=== PATIENT | female | born 1945 | race African-American/Black ===

== ENCOUNTER 2019-03-27 17:43 | Inpatient (IN) | payer MEDICARE ==
[~2019-03-27] VITALS: Ht 165.1 cm; Wt 86.1 kg
[2019-03-27] MEDS ORDERED: FERROUS SULFAT325 MG PO (17:50)
[2019-03-27] MEDS ORDERED: HYDRALAZINE HCL25 MG PO (17:50)
[2019-03-27] MEDS ORDERED: RENVELA800 MG PO (17:51)
[2019-03-27] MEDS ORDERED: ADALAT CC90 MG PO (17:51)
[2019-03-27] MEDS ORDERED: LASIX80 MG PO (17:51)
[2019-03-27] MEDS ORDERED: ELAVIL10 MG PO (17:52)
[2019-03-27] MEDS ORDERED: ANASTROZOLE PO (17:53)
[2019-03-27] MEDS ORDERED: RETIN-A15 GM TP (17:54)
[2019-03-27 19:43] LABS: BASOPHILS 0.2 % (0-2); EOSINOPHILS 0.1 % (0-7); IMMATURE GRANULOCYTES 0.9 % (0-5); LYMPHOCYTES 16.4 % (15-50); MCH 23.8 pg (26.0-34.0); MCHC 28.1 g/dL (31.0-37.0); MCV 84.5 fL (80.0-100.0); MEAN PLATELET VOLUME 9.4 fL (7.4-10.4); MONOCYTES 7.3 % (2-11); NEUTROPHILS 75.1 % (40-80); PLATELET COUNT 285 10x3/uL (130-400); RDW 16.7 % (11.5-14.5)
[2019-03-27 19:59] LABS: HEMATOCRIT 15.3 % (36.0-48.0); HEMOGLOBIN 4.3 g/dL (12-16); RBC 1.81 10x6/uL (4.00-5.40)
[2019-03-27 20:40] LABS: ALBUMIN 2.3 g/dL (3.4-5.0); ANION GAP 16.6 mmol/L (8-16); BILIRUBIN - TOTAL 0.14 mg/dL (0.2-1.3); CALCIUM 8.1 mg/dL (8.5-10.1); CARBON DIOXIDE 23.5 mmol/L (21.0-32.0); POTASSIUM - SERUM 3.1 mmol/L (3.5-5.1); PROTEIN - SERUM 6.3 g/dL (6.4-8.2)
--- NOTE | 2019-03-27 22:00 | NUR ---
PT ARRIVED TO ICU ACCOMPANIED BY NURSING STAFF. REPORT RECEIVED, PT ON ROOM AIR. PIV IN LEFT HAND INFUSING, SEE IV FLOWSHEET. NO ACUTE DISTRESS NOTED AT THIS TIME, WILL CONTINUE WITH PLAN OF CARE.
[2019-03-27 22:16] VITALS: BP 182/77; BMI 30.8
[2019-03-27 23:00] VITALS: BP 190/83
--- NOTE | 2019-03-27 23:00 | NUR ---
PT RESTING IN BED, NO ACUTE DISTRESS NOTED. SPOUSE AT BEDSIDE AT THIS TIME. WILL CONTINUE TO MONITOR.
[2019-03-28] VITALS (23 sets, daily range): BP systolic 131–189; BP diastolic 62–85; Ht 165.1 cm; Wt 86.1 kg
--- NOTE | 2019-03-28 00:10 | NUR ---
SPOKE WITH DR CANALES, UPDATED ON PT STATUS, NEW ORDERS RECEIEVED. DRESSING PLACE ON HEMOSPLIT TO RIGHT UPPER CHEST. NO BLEEDING NOTED AT THIS TIME.
--- NOTE | 2019-03-28 01:00 | NUR ---
PT SITTING UP IN BED, NO ACUTE DISTRESS NOTED.
--- NOTE | 2019-03-28 03:00 | NUR ---
PRBC COMPLETE, PIV TO SL. NO ACUTE DISTRESS NOTED AT THIS TIME. WILL CONTINUE TO MONITOR.
--- NOTE | 2019-03-28 05:00 | NUR ---
PT RESTING IN BED, AAOX4. NO ACUTE DISTRESS NOTED. WILL CONTINUE TO MONITOR.
[2019-03-28 05:28] LABS: ANION GAP 12.7 mmol/L (8-16); CALCIUM 7.9 mg/dL (8.5-10.1); CARBON DIOXIDE 26.9 mmol/L (21.0-32.0); CREATININE - SERUM 7.3 mg/dL (0.6-1.3)
[2019-03-28 05:32] LABS: POTASSIUM - SERUM 2.6 mmol/L (3.5-5.1)
[2019-03-28 05:44] LABS: BASOPHILS 0.1 % (0-2); EOSINOPHILS 0.8 % (0-7); IMMATURE GRANULOCYTES 0.5 % (0-5); LYMPHOCYTES 16.5 % (15-50); MCH 27.4 pg (26.0-34.0); MCHC 31.7 g/dL (31.0-37.0); MEAN PLATELET VOLUME 9.3 fL (7.4-10.4); MONOCYTES 9.3 % (2-11); NEUTROPHILS 72.8 % (40-80); PLATELET COUNT 318 10x3/uL (130-400); RDW 15.6 % (11.5-14.5); WBC 12.1 10x3/uL (4.8-10.8)
[2019-03-28 05:49] LABS: HEMATOCRIT 22.4 % (36.0-48.0); HEMOGLOBIN 7.1 g/dL (12-16); MCV 86.5 fL (80.0-100.0); RBC 2.59 10x6/uL (4.00-5.40)
--- NOTE | 2019-03-28 06:03 | NUR ---
DR CANALES PAGED REGARDING LABS. AWAITING CALL BACK.
--- NOTE | 2019-03-28 06:32 | NUR ---
RECEIVED CALL BACK FROM DR CANALES, UPDATED ON STATUS, NEW ORDERS RECEIVED.
--- NOTE | 2019-03-28 07:00 | NUR ---
REPORT RECEIVED. ASSESSMENT COMPLETE PER FLOW SHEET. VSS. PT DENIES NEEDS WILL CONTINUE TO MONITOR
--- NOTE | 2019-03-28 08:08 | NUR ---
FAMILY CALLED THAT CLAIMED TO BE BROTHER IN LAW. WAS NOT ABLE TO PROVIDE DATE OF . DENIED FAMILY ANY INFORMATION
--- NOTE | 2019-03-28 08:20 | NUR ---
DR MEJIA PAGED GIVEN UDPATE.
--- NOTE | 2019-03-28 09:30 | NUR ---
ASSISTED UPTO BEDSIDE COMMODE. 150 CC VOID NOTED.
--- NOTE | 2019-03-28 10:32 | NUR ---
FAMILY CALLED GIVEN NIK
--- NOTE | 2019-03-28 11:08 | NUR ---
PT PREOP'D PER T ORDER FROM OR.
--- NOTE | 2019-03-28 11:10 | NUR ---
OR AT BEDSIDE PT TO OR AT THIS TIME. NEEDS MET.
--- NOTE | 2019-03-28 13:40 | NUR ---
PT BACK FROM OR AT THIS TIME. VSS. NO NEW CANGES WILL CONTINUE TO MONITOR
--- NOTE | 2019-03-28 15:20 | NUR ---
PT RESTING COMFORTABLY VSS NO NEW CHANGE DIALYSIS AT BEDSIDE GIVEN UPDATE. WILL CONTINUE TO MONITOR
--- NOTE | 2019-03-28 17:20 | NUR ---
MCAIE TERRELL CALLED BACK STATED WOULD RECIEVED 2 U PRBC TOMM[place] WITH DIALYSIS. DIALYSIS TO BE POSTPONED UNTIL T[place].
--- NOTE | 2019-03-28 19:00 | NUR ---
ASSESSMENT COMPLETED. VSS. DENIES ANY NEEDS AT THIS TIME. ON ROOM AIR. DRSG TO NEW HEMOSPLIT CDI.
--- NOTE | 2019-03-28 21:00 | NUR ---
VSS. DENIES ANY NEEDS AT THIS TIME. LAYING BACK IN BED, EASILY WAKES.
--- NOTE | 2019-03-28 23:00 | NUR ---
RE-ASSESSMENT COMPLETED. DENIES ANY NEEDS AT THIS TIME. EASILY WAKES. CALL LIGHT IN REACH
--- NOTE | 2019-03-29 01:00 | NUR ---
VSS. LAYING IN BED, EASILY WAKES. DENIES ANY NEEDS. CALL LIGHT IN REACH
[2019-03-29 03:00] VITALS: BP 174/72
--- NOTE | 2019-03-29 03:00 | NUR ---
DENIES ANY NEEDS. EASILY WAKES. VSS.
[2019-03-29 04:13] LABS: BASOPHILS 0.1 % (0-2); EOSINOPHILS 1.1 % (0-7); HEMATOCRIT 20.3 % (36.0-48.0); IMMATURE GRANULOCYTES 0.2 % (0-5); LYMPHOCYTES 15.5 % (15-50); MCH 27.4 pg (26.0-34.0); MCHC 31.5 g/dL (31.0-37.0); MCV 86.8 fL (80.0-100.0); MONOCYTES 9.3 % (2-11); NEUTROPHILS 73.8 % (40-80); PLATELET COUNT 281 10x3/uL (130-400); RBC 2.34 10x6/uL (4.00-5.40); RDW 15.7 % (11.5-14.5)
[2019-03-29 04:36] LABS: HEMOGLOBIN 6.4 g/dL (12-16)
[2019-03-29 04:42] LABS: ALBUMIN 2.2 g/dL (3.4-5.0); BILIRUBIN - TOTAL 0.19 mg/dL (0.2-1.3); CALCIUM 7.7 mg/dL (8.5-10.1); CARBON DIOXIDE 26.6 mmol/L (21.0-32.0); CREATININE - SERUM 8.4 mg/dL (0.6-1.3)
[2019-03-29 04:43] LABS: POTASSIUM - SERUM 3.6 mmol/L (3.5-5.1)
--- NOTE | 2019-03-29 05:00 | NUR ---
CHG BATH WITH COMPLETE LINEN CHANGE. VSS. CALL LIGHT IN REACH
[2019-03-29 07:00] VITALS: BP 176/84
--- NOTE | 2019-03-29 07:13 | NUR ---
[facility] [address]. CALLED DR. CANALES AND NO NEW ORDERS.
--- NOTE | 2019-03-29 07:20 | NUR ---
REPORT RECEIVED. ASSESSMENT COMPELTE PER FLOW SHEET. VSS. PT RESTING COMFORTABLY DR CANALES AT BEDSIDE GIVEN UPDATE. NEW ORDERS RECIEVED
[2019-03-29 11:00] VITALS: BP 151/72
[2019-03-29 15:00] VITALS: BP 164/82
--- NOTE | 2019-03-29 21:28 | MORECARE ---
CASE MANAGEMENT DISCHARGE SUMMARY PATIENT: MAN GARCIA UNIT: [id number] ADM DATE: 03/27/19 AGE: 73 : 47 SEX: F ROOM/BED: D.2309 AUTHOR: CARMENZA COSME PHYSICIAN: REFERRING PHYSICIAN: MEÑO CANALES MD DATE OF SERVICE: 03/29/19 Discharge Plan Patient Name: MAN GARCIA [facility] [facility] 1945 Planned Disposition: Home Anticipated Discharge Date: Discharge Date: 03/29/2019 Expected LOS: Initial Reviewer: [email or web address] Initial Review Date: 03/29/2019 Generated: 03/29/19 10:28 pm DCPIA - Discharge Planning Initial Assessment Updated by [email or web address]: Liberty Darby on 03/29/19 9:27 pm * Is the patient Alert and Oriented? Yes * How many steps to enter\exit or inside your home? * PCP BRYAN CROUCH * [facility] * Preadmission Environment Home with Family * ADLs Independent * Equipment None * List name and contact numbers for known caregivers / representatives who currently or will assist patient after discharge: JUD GARCIA - SPOUSE- [phone] * Verbal permission to speak to the caregivers and representatives has been obtained from the patient. N/A * Community resources currently utilized None * Additional services required to return to the preadmission environment? No * Can the patient safely return to the preadmission environment? Yes * Has this patient been hospitalized within the prior 30 days at any hospital? Yes Patient Name: MAN GARCIA Page [id number] at 2128 All edits/amendments must be made on the electronic document DICTATION DATE: 03/29/192127 SERVICE DESK ASSOCIATE: TYRA 03/29/192127 RPT#: [id number] DC DATE:03/29/19 STATUS: DIS IN [facility] [address] [place] [address] END OF REPORT
--- NOTE | 2019-03-29 21:36 | MORECARE ---
CASE MANAGEMENT DISCHARGE SUMMARY PATIENT: MAN GARCIA UNIT: [id number] ADM DATE: 03/27/19 AGE: 73 : 47 SEX: F ROOM/BED: D.2309 AUTHOR: CARMENZA COSME PHYSICIAN: REFERRING PHYSICIAN: MEÑO CANALES MD DATE OF SERVICE: 03/29/19 Discharge Plan Patient Name: MAN GARCIA Facility: [facility]:[place] : 1945 Planned Disposition: Home Anticipated Discharge Date: Discharge Date: 03/29/2019 Expected LOS: Initial Reviewer: [email or web address] Initial Review Date: 03/29/2019 Generated: 03/29/19 10:35 pm Comments DCP- Discharge Planning Updated by [email or web address]: Liberty Darby on 03/29/19 8:[address] LATE ENTRY 03/29/19 @ 1200 Patient Name: MAN GARCIA Admission Status: ER Accout number: [id number] Admission Date: 03-27-2019 : 1945 Admission Diagnosis:ACUTE POSTHEMORRHAGIC ANEMIA Attending: MEÑO CANALES Current LOS: 2 Anticipated DC Date: Planned Disposition: Home Primary Insurance: [employer] CHO[employer] PPO MCR ADVANT Discharge Planning Comments: CM met with patient to complete initial dc planning assessment. CM educated patient on the CM role and verbal consent given by patient to complete assessment. Patient lives at home with her where she is independent with her care. At discharge patient plans to return home and feels this is a safe discharge. CM discussed availability of home health, rehab services, and medical equipment. Her family will drive her home. Patient has dialysis at [facility] MWF @ 1430 Patient denied known discharge needs at this time. CM will continue to follow and will assist as needed with dc plans/needs. Junior Loan Processor: Liberty Darby DCPIA - Discharge Planning Initial Assessment Updated by [email or web address]: Liberty Darby on 03/29/19 9:27 pm * Is the patient Alert and Oriented? Yes * How many steps to enter\exit or inside your home? * PCP BRYAN CROUCH * Pharmacy [facility] * Preadmission Environment Home with Family * ADLs Independent * Equipment None * List name and contact numbers for known caregivers / representatives who currently or will assist patient after discharge: JUD GARCIA - SPOUSE- [phone] * Verbal permission to speak to the caregivers and representatives has been obtained from the patient. N/A * Community resources currently utilized None * Additional services required to return to the preadmission environment? No * Can the patient safely return to the preadmission environment? Yes * Has this patient been hospitalized within the prior 30 days at any hospital? Yes Last DP export: 03/29/19 8:28 Patient Name: MAN GARCIA Page [id number] at 2136 All edits/amendments must be made on the electronic document DICTATION DATE: 03/29/192134 STOCK CRANE OPERATOR: TYRA 03/29/192134 RPT#: [id number] CA DATE:03/29/19 STATUS: DIS IN [facility] [address] [place] [address] END OF REPORT
== END 2019-03-29 17:22 | disposition home or self-care (01) | DRG 811 ==
LOC: D.ER 17:43 → D.ICU 21:03
PROVIDERS: Family Medicine; Surgery; ADMIT Internal Medicine Nephrology; ATTEND Internal Medicine Nephrology
PROC: 05HM33Z Insertion of Infusion Device into Right Internal Jugular Vein, Percutaneous Approach (ICD-10-PCS; 2019-03-28)
PROC: 0JH63XZ Insertion of Tunneled Vascular Access Device into Chest Subcutaneous Tissue and Fascia, Percutaneous Approach (ICD-10-PCS; principal; 2019-03-28 12:30)
DX: D62 Acute posthemorrhagic anemia (principal); N18.6 End stage renal disease; I12.0 Hypertensive chronic kidney disease with stage 5 chronic kidney disease or end stage renal disease; E11.22 Type 2 diabetes mellitus with diabetic chronic kidney disease; Z99.2 Dependence on renal dialysis

== ENCOUNTER 2019-08-28 06:53 | Day surgery (SDC) | payer MEDICARE, OTHER ==
[~2019-08-28] VITALS: Ht 165.1 cm; Wt 78.0 kg
--- NOTE | ~2019-08-28 | OP ---
PATIENT NAME: MAN GARCIA MEDICAL RECORD: [id number] :[birth year] LOCATION:[facility] ADMISSION DATE: SURGEON: HOMER AZUL MD DATE OF OPERATION: 08/28/2019 REFERRED BY: Chase Canales MD. PREOPERATIVE DIAGNOSES: End-stage renal disease and dependence on hemodialysis with a patent unusable deep left brachial artery to basilic vein arteriovenous fistula. ADDITIONAL DIAGNOSES: Diabetes and hypertension. POSTOPERATIVE DIAGNOSES: End-stage renal disease and dependence on hemodialysis with a patent unusable deep left brachial artery to basilic vein arteriovenous fistula. OPERATION PERFORMED: Open revision by completion of a left brachial artery to translocated basilic vein AV fistula with complete mobilization and transection of the vein and translocation to an immediate subcutaneous position with reanastomosis by end-to-end direct suture. SURGEON: Homer Azul MD ANESTHESIA: General per ASSISTANT REAL ESTATE MANAGER with LMA. PREOPERATIVE NOTE: Ms. Garcia is a very pleasant 73-year-old -[place]ian female with end-stage renal disease, diabetes and hypertension. She has been started on dialysis and is stable on dialysis now with a right-sided tunneled dialysis catheter. She has very poor peripheral veins for construction of an arteriovenous fistula, but in mid June of this year, I did operate on her and construct a brachiobasilic Jarocho type AV fistula as a first stage in a planned 2 stage operation to construct a translocated basilic vein fistula. The patient has returned to the operating room now just over 2 months later for that procedure. The fistula has remained patent and on ultrasound has a diameter of approximately 10 mm through most of its length in the arm above the elbow. DESCRIPTION OF PROCEDURE: The patient was administered general anesthesia and then prepped and draped in sterile manner. I examined her arm with a duplex ultrasound and noted the basilic vein to be very satisfactorily dilated from the axilla down to the arterial anastomosis. I then made a long incision from axilla to the antecubital space and fully mobilized the basilic vein. Tributaries and vice president global advertising sales veins were divided between ligatures of 3-0 Vicryl and small Hemoclips and the vein totally mobilized from the overlying cutaneous sensory nerves. Distally just above or proximal to the arterial anastomosis, the vein was clamped and was then transected and bevelled. The vein was occluded proximally with an atraumatic vascular clamp and it was then flushed and distended with heparinized saline and treated with topical papaverine additionally. I then made an anterior very superficial subcutaneous tunnel for the vein in the usual manner using a Zoie tunneler. When I pulled it through the tunnel, it really was under excessive tension and I elected to place the vein in the immediate subcutaneous level while closing the primary incision. I flushed the vein again proximally and distally with heparinized saline and then performed an end-to-end anastomosis of basilic vein to basilic vein with running 7-0 Prolene. This was done of course superficial to the underlying nerves, OPERATIVE REPORT [id number] MAN GARCIA which had been dissected and spared during the first portion of the procedure. There was excellent flow in the fistula by handheld Doppler examination at this time and there was no twisting or kinking. The wound was infiltrated with 0.25% Marcaine with epinephrine and hemostasis additionally achieved with very discrete use of electrocautery. I then closed the wound closing the superficial tissues just deep to the vein. This was done with interrupted inverted 3-0 Vicryl. The fistula remained patent with good Doppler flow. I then closed the skin over the vein with a running intracuticular 4-0 Stratafix and when I examined her again with Doppler and palpation, there was no flow in the fistula detectable. I opened the lower third of the fistula and examined and palpated and massaged the vein and the anastomosis and pulsatile continuous flow returned. I did not see any evidence of significant technical problems at this point and I did not reopened the venous anastomosis and I did not try to pass a Alannah embolectomy catheter, but felt comfortable that there was no remaining thrombus within the vein. The wound was carefully closed very gently over this with intracuticular and subcuticular 3-0 Vicryl. The flow in the vein by handheld Doppler persisted. The incision was sealed with Dermabond glue and dressed with Maxorb Ag, Tegaderm, and Cavilon skin prep. The patient was awakened and taken to the recovery room in stable condition. Blood loss during the operation was about 5 cc and this was unreplaced. Sponges, instruments, and needles were accounted for. No drain was used and no surgical specimen was submitted for histopathology. In the recovery room, I could not hear a bruit or feel a thrill over the fistula. There has been an early failure or thrombosis for no reason that I can very clearly determine. The patient has been under anesthesia for a couple of hours and I am not going to return her to the operating room now for potentially implantation of an AV graft as I think it would become impossible for her to maintain outpatient status. I will plan to discharge her to home today and follow up with her in my office next week. At that time, we will recheck for patency of course of the fistula by ultrasound and if it is not patent, we will discuss with her scheduling for an AV graft probably left brachial artery to axillary vein Artegraft graft. TRANSINT:[id number] Voice Confirmation ID: [id number] DOCUMENT ID: [id number] CC: HOMER Correa MD CC: CHASE CANALES [id number] DICTATION DATE: 08/28/19 1355 SEISMOGRAPH OPERATOR: 08/28/19 1539 [facility] 08/28/[address] [facility] [address] [place] [address]
[~2019-08-28 06:53] MED LIST: ADALAT CC90 MG PO; ANASTROZOLE PO; BUMEX2 MG PO; ELAVIL10 MG PO; FERROUS SULFAT325 MG PO; HYDRALAZINE HCL25 MG PO; LASIX80 MG PO; RENVELA800 MG PO; RETIN-A15 GM TP; ULTRAM50 MG PO
[2019-08-28 07:22] LABS: BASOPHILS 0.4 % (0-2); EOSINOPHILS 1.9 % (0-7); HEMATOCRIT 46.2 % (36.0-48.0); IMMATURE GRANULOCYTES 0.3 % (0-5); LYMPHOCYTES 19.8 % (15-50); MCH 28.2 pg (26.0-34.0); MCHC 30.3 g/dL (31.0-37.0); MCV 93.1 fL (80.0-100.0); MEAN PLATELET VOLUME 9.6 fL (7.4-10.4); MONOCYTES 7.2 % (2-11); NEUTROPHILS 70.4 % (40-80); PLATELET COUNT 223 10x3/uL (130-400); RBC 4.96 10x6/uL (4.00-5.40); WBC 7.3 10x3/uL (4.8-10.8)
[2019-08-28 07:30] LABS: ANION GAP 19.1 mmol/L (8-16); CALCIUM 9.4 mg/dL (8.5-10.1); CARBON DIOXIDE 21.8 mmol/L (21.0-32.0); CREATININE - SERUM 7.3 mg/dL (0.6-1.3); INR 0.95 (0.85-1.17); POTASSIUM - SERUM 4.9 mmol/L (3.5-5.1); PROTIME 12.7 SECONDS (11.6-15.0)
[2019-08-28] MEDS ORDERED: LASIX80 MG PO (07:35)
[2019-08-28 08:01] VITALS: Ht 165.1 cm; Wt 78.0 kg
--- NOTE | 2019-08-28 09:14 | NUR ---
POSITIVE FOR POINT OF CONTACT OVERNIGHT STAY IN HOSPITAL FACILITY, CLEARED BY KRISTA WITH INFECTION CONTROL.
== END 2019-08-28 14:40 | disposition home or self-care (01) ==
LOC: D.OPS 06:53
PROVIDERS: Surgery; ATTEND Internal Medicine Nephrology
DX: I12.0 Hypertensive chronic kidney disease with stage 5 chronic kidney disease or end stage renal disease (principal); E11.22 Type 2 diabetes mellitus with diabetic chronic kidney disease; N18.6 End stage renal disease; Z99.2 Dependence on renal dialysis

== ENCOUNTER 2019-10-02 06:55 | Day surgery (SDC) | payer OTHER ==
[~2019-10-02] VITALS: Ht 165.1 cm; Wt 79.8 kg
--- NOTE | ~2019-10-02 | OP ---
PATIENT NAME: MAN GARCIA MEDICAL RECORD: [id number] :[birth year] LOCATION:[facility] ADMISSION DATE: SURGEON: HOMER AZUL MD DATE OF OPERATION: 10/02/2019 REFERRING PHYSICIAN: Chase Canales MD DIAGNOSES: End-stage renal disease, dependence on hemodialysis and thrombosed AV fistula. SURGEON: Homer Azul MD ANESTHESIA: General endotracheal per ELECTRICIAN APPRENTICE. OPERATION PERFORMED: Implantation of a left arm proximal brachial artery to axillary vein Artegraft loop AV graft. PREOPERATIVE NOTE: This is 73-year-old white female patient with end-stage renal disease, has no long-term access, having thrombosed or AV fistula. She is brought to the operating room now to implant a graft in her left arm. She has had failed prior left brachial translocated basilic AV fistula and I anticipate having to go more proximal upon to the axillary vein for the venous outflow. Under general endotracheal anesthesia, the patient was prepped and draped in sterile manner. A longitudinal incision on the arm was made after localizing the axillary vein and axillary artery. With ultrasound, these vessels were of normal caliber or nearly normal caliber, a bit small actually. The vein and artery were exposed and controlled with Silastic loops. The artery was occluded and flushed with heparinized saline after an arteriotomy about a centimeter was made. An Artegraft was prepared, bevelled, and anastomosed end-to-side to the artery with continuous running 6-0 Prolene. The graft was then placed in a subcutaneous tunnel utilizing a single counter incision above the antecubital space. The graft was brought back up on the medial aspect to the axillary vein. The vein was occluded and opened, flushed with heparinized saline and then the venous anastomosis performed with running 6-0 Prolene. The graft had been flushed and was flushed multiple times during the procedure with heparinized saline and I was certain that the graft was in the immediate subcutaneous depth and it was not twisted. With release of the occluding clamps and loops, excellent flow developed immediately within the graft and the suture lines were hemostatic. The patient's wound was irrigated with Ancef and gentamicin solution and closed without the use of a drain with interrupted inverted 3-0 Vicryl and running intracuticular 4-0 Stratafix. The counter incision was closed similarly. Both incisions were further closed and sealed with Dermabond glue and dressed with Maxorb Ag, Tegaderm, and Cavilon skin prep. At that point, she was awakened and in stable condition taken to the recovery room. Blood loss during the operation was on the order of 25 cc and was unreplaced. Sponges, instruments, and needles were accounted for. No drain was utilized and no surgical specimen was submitted for histopathology. The patient was kept in overnight observation postop. She was an outpatient for this procedure. TRANSINT:[id number] Voice Confirmation ID: [id number] DOCUMENT ID: [id number] cc: [facility] OPERATIVE REPORT [id number] MAN GARCIA JAMES MD CC: CHASE CANALES [id number] DICTATION DATE: 10/05/19 1049 [place] OPERATOR: 10/05/19 190 [facility] 10/02/19 [facility] [address] [place] [address]
[2019-10-02 07:19] LABS: BASOPHILS 0.3 % (0-2); EOSINOPHILS 1.5 % (0-7); HEMATOCRIT 37.5 % (36.0-48.0); HEMOGLOBIN 11.4 g/dL (12-16); IMMATURE GRANULOCYTES 0.9 % (0-5); LYMPHOCYTES 18.8 % (15-50); MCH 28.2 pg (26.0-34.0); MCHC 30.4 g/dL (31.0-37.0); MCV 92.8 fL (80.0-100.0); MEAN PLATELET VOLUME 9.9 fL (7.4-10.4); MONOCYTES 10.6 % (2-11); NEUTROPHILS 67.9 % (40-80); PLATELET COUNT 237 10x3/uL (130-400); RBC 4.04 10x6/uL (4.00-5.40); RDW 16.2 % (11.5-14.5); WBC 9.7 10x3/uL (4.8-10.8)
[2019-10-02 07:29] LABS: CALCIUM 9.7 mg/dL (8.5-10.1); CARBON DIOXIDE 23.4 mmol/L (21.0-32.0); CREATININE - SERUM 8.7 mg/dL (0.6-1.3); POTASSIUM - SERUM 5.4 mmol/L (3.5-5.1)
[2019-10-02 08:23] LABS: INR 0.97 (0.85-1.17); PROTIME 12.9 SECONDS (11.6-15.0)
[2019-10-02 09:30] VITALS: Ht 165.1 cm; Wt 79.8 kg
[2019-10-02] MEDS ORDERED: ULTRAM50 MG PO (14:31)
== END 2019-10-02 16:35 | disposition home or self-care (01) ==
LOC: D.OPS
PROVIDERS: ATTEND Surgery
DX: E11.22 Type 2 diabetes mellitus with diabetic chronic kidney disease (principal); I12.0 Hypertensive chronic kidney disease with stage 5 chronic kidney disease or end stage renal disease; N18.6 End stage renal disease; Z99.2 Dependence on renal dialysis; E66.9 Obesity, unspecified; T82.868A Thrombosis due to vascular prosthetic devices, implants and grafts, initial encounter